=== PATIENT | female | born 1955 | race Caucasian/White ===

== ENCOUNTER → 2017-03-05 | Day surgery (SDC) | payer MEDICARE ==
[~2017-03-05] MED LIST: CYCL10TA2 PO; ESOM40CA PO; EZET1TAB35 PO; FLUO20CA16 PO; HYDR-971 PO; IV RINGERS,LACTATED 1000ML 1,000 ML IV SCH; LEVO88TA4 PO; LIDOCAINE 1% PF 2 ML VIAL. ID PRN; MIDAZOLAM HCL/PF 2 MG/2 ML VIAL. IV PRN; PANT40TA5 PO; PROPOFOL 20 ML IV ONE; fentaNYL PF VIAL 100 MCG/2 ML VIAL IV PRN
[2017-03-05 13:30] VITALS: BP 121/61
== END | disposition home or self-care (01) ==
LOC: SURG 11:53
PROVIDERS: ATTEND Internal Medicine Gastroenterology
DX: Z09 Encounter for follow-up examination after completed treatment for conditions other than malignant neoplasm (principal); Z86.010 Personal history of colon polyps; K64.0 First degree hemorrhoids; E78.00 Pure hypercholesterolemia, unspecified; K21.9 Gastro-esophageal reflux disease without esophagitis; M19.91 Primary osteoarthritis, unspecified site; F32.9 Major depressive disorder, single episode, unspecified; F17.200 Nicotine dependence, unspecified, uncomplicated; Z90.710 Acquired absence of both cervix and uterus; Z86.39 Personal history of other endocrine, nutritional and metabolic disease
CPT/HCPCS: 45378; J2704

== ENCOUNTER → 2021-07-12 | Outpatient (CLI) | payer OTHER ==
[2017-03-05 13:30] VITALS: BP 121/61
[~2021-07-12] MED LIST changes: +CYCL10TA19 PO; -CYCL10TA2 PO; +HYDR-3164 PO; -HYDR-971 PO; -IV RINGERS,LACTATED 1000ML 1,000 ML IV SCH; -LIDOCAINE 1% PF 2 ML VIAL. ID PRN; -MIDAZOLAM HCL/PF 2 MG/2 ML VIAL. IV PRN; -PANT40TA5 PO; +PANT40TA77 PO; -PROPOFOL 20 ML IV ONE; -fentaNYL PF VIAL 100 MCG/2 ML VIAL IV PRN
--- NOTE | 2021-07-12 13:59 | RAD ---
CT LOWER LEFT EXTREMITY WITHOUT CONTRAST Clinical Indication: Reason: left knee conformis / Spl. Instructions: Conformis protocol TECHNIQUE: CT LOWER LEFT EXTREMITY WITHOUT CONTRAST. Thin contiguous axial CT images of the bilatera l hip, knee, and ankle were performed according to the conformis protocol. PQRS compliance statement - One or more of the following individualized dose reduction techniques wer e utilized for this study: 1. Automated exposure control 2. Adjustment of the mA and/or kV according to patient size 3. Use of iterative reconstruction technique Comparison: None. Findings: Study was performed for preoperative planning. Hip: There are no fractures or dislocations. There are no aggressive osseous lesions. Joint spaces ar e maintained. Mild bladder wall thickening likely cystitis, otherwise visceral structures are unremar kable. Knee: There are no fractures or dislocations. There are no aggressive osseous lesions. Severe left kn ee joint osteoarthritis with fragmentation and deformity of the medial femoral condyle and medial tib ial plateau with associated joint bodies. Moderate left knee joint effusion. Ankle: There are no fractures or dislocations. There are no aggressive osseous lesions. Joint spaces are maintained. Soft tissues are unremarkable. Impression: Preoperative planning CT left knee using conformance protocol. Severe left knee joint osteoarthritis. Mild bladder wall thickening, nonspecific but can be seen with cystitis. Electronically signed by: Jv Acuna MD (07/12/2021 1:56 PM) LINDA
== END ==
LOC: CT 13:30
PROVIDERS: ATTEND Orthopaedic Surgery
DX: M17.12 Unilateral primary osteoarthritis, left knee (principal); N32.89 Other specified disorders of bladder; M25.462 Effusion, left knee; M21.962 Unspecified acquired deformity of left lower leg
CPT/HCPCS: 73700

== ENCOUNTER → 2021-08-21 | Outpatient (CLI) | payer MEDICARE ==
[2017-03-05 13:30] VITALS: BP 121/61
[~2021-08-21] MED LIST changes: +ATOR40TA59 PO; +CHOL200059 PO; +FERR325T14 PO; +INUL2TAB4 PO; +MELO15TA23 PO
[2021-08-21 13:03] LABS: BASO # 0.1 x10^3/uL (0.0-0.2); BASO % 1 % (0-3); EOS # 0.3 x10^3/uL (0.0-0.7); EOS % 4 % (0-3); HEMATOCRIT 43.9 % (36.0-47.0); HEMOGLOBIN 14.2 g/dL (12.0-15.5); LYMPH # 1.9 x10^3/uL (1.0-4.8); LYMPH % 26 % (24-48); MEAN CORPUSCULAR HEMOGLOBIN 31 pg (25-35); MEAN CORPUSCULAR HGB CONC 32 g/dL (31-37); MEAN CORPUSCULAR VOLUME 94 fL (79-100); MONO # 0.4 x10^3/uL (0.0-1.1); MONO % 6 % (0-9); NEUT # 4.7 x10^3/uL (1.8-7.7); NEUT % 64 % (31-73); PLATELET COUNT 345 x10^3/uL (140-400); RED BLOOD COUNT 4.66 x10^6/uL (3.50-5.40); RED CELL DISTRIBUTION WIDTH 13.2 % (11.5-14.5); WHITE BLOOD COUNT 7.4 x10^3/uL (4.0-11.0)
--- NOTE | 2021-08-21 13:14 | EKG ---
[facility] [address] [place] [address] Test Date: 2021-08-21 Test Time: 13:13:27 Pat Name: DEVIN BABCOCK Department: Room: Gender: F Collections Rep: QING : 1955 Requested By: LILLI ESTEBAN Order Number: [id number] Reading MD: Ike Butler Measurements Intervals [place] Rate: 74 P: 23 NC: 140 QRS: -6 QRSD: 82 T: 23 QT: 342 QTc: 380 Interpretive Statements SINUS RHYTHM LEFTWARD AXIS T ABNORMALITY IN HIGH LATERAL LEADS Electronically Signed On 08-22-2021 8:19:41 CLOTH FINISHING RANGE OPERATOR by Ike Butler
[2021-08-21 13:17] LABS: PROTHROMBIN TIME PATIENT 11.8 SEC (11.7-14.0)
[2021-08-21 13:19] LABS: ALBUMIN 3.9 g/dL (3.4-5.0); CALCIUM 9.5 mg/dL (8.5-10.1); CREATININE 1.1 mg/dL (0.6-1.0); GFR 50.2; POTASSIUM 4.8 mmol/L (3.5-5.1)
--- NOTE | 2021-08-21 13:49 | RAD ---
AP and Lateral Views of the Chest 08/21/2021 1:15 PM Indication: Preop knee replacement: Comparison: Chest radiograph February 20, 2016] Findings: Stable calcified granulomas in the left upper lobe. There is no focal consolidation or infi ltrate identified. Heart size is normal.. There is no evidence of pneumothorax or pleural effusion. N o acute osseous abnormalities are identified. Impression: No evidence of acute cardiopulmonary process. Electronically signed by: Kumar Chaudhry MD (08/21/2021 1:46 PM) [id number]
[2021-08-22 02:09] LABS: HEMOGLOBIN A1C 5.9 % (4.8-5.6)
== END ==
LOC: SURGPAT 12:18
PROVIDERS: ATTEND Orthopaedic Surgery
DX: Z01.818 Encounter for other preprocedural examination (principal); J84.10 Pulmonary fibrosis, unspecified; M17.12 Unilateral primary osteoarthritis, left knee
CPT/HCPCS: 36415; 71046; 80048; 82040; 82306; 83036; 85025; 85610; 85651; 85730; 87641; 93005

== ENCOUNTER 2021-09-09 09:04 | Observation (INO) | payer MEDICARE ==
[2021-08-21 12:46] VITALS: BP 167/87
[~2021-09-09] VITALS: Ht 157.5 cm; Wt 90.4 kg
[~2021-09-09 09:04] MED LIST changes: +ACETAMINOPHEN 500 MG TABLET PO PRN; +GABAPENTIN 300 MG CAPSULE. PO PRN; +HYDROmorphone 2 MG/ML INJ. IVP PRN; +IV RINGERS,LACTATED 1000ML 1,000 ML IV SCH; +MELOXICAM 7.5 MG TABLET PO PRN; +PROCHLORPERAZINE 10 MG/2 ML VIAL. IVP PRN; +TRANEXAMIC ACID 1,000 MG in IV NS 50ML -- 1ST BAG INJ ONE; +TRANEXAMIC ACID 1,000 MG in IV NS 50ML -- 2ND BAG INJ ONE; +TV=100ml MORPHINE 5 MG, KETOROLAC 30 MG, ROPIVacaine 0.5% PF 60 ML, EPINEPH... INT ART ONE; +fentaNYL PF VIAL 100 MCG/2 ML VIAL IVP PRN
[2021-09-09] MEDS: TV=62ml MORPHINE 5 MG, KETOROLAC 30 MG, ROPIV, EPI INT ART ONE ×2 (10:45→12:14)
[2021-09-09] MEDS ORDERED: ONDANSETRON PF 4 MG/2 ML VIAL. ONE (10:54)
[2021-09-09] MEDS ORDERED: SEVOFLURANE 61 TO 120 MINUTES. IH ONE (10:54)
[2021-09-09] MEDS ORDERED: DEXAMETHASONE SOD PHOS 4 MG/ML VIAL ONE (10:54)
[2021-09-09] MEDS ORDERED: PROPOFOL 10 MG/ML (20ML) VIAL. IV ONE ×2 (10:54→12:13)
[2021-09-09] MEDS ORDERED: LIDOCAINE 2% PF 5 ML VIAL. ONE (10:54)
[2021-09-09] MEDS ORDERED: KETOROLAC 30 MG/ML VIAL. ONE (10:54)
[2021-09-09] MEDS ORDERED: 0.9 % SODIUM CHLORIDE 10 ML DISP.SYRIN. IV PRN (11:45)
[2021-09-09] MEDS ORDERED: PROCHLORPERAZINE 5 MG TABLET. PO PRN (11:45)
[2021-09-09] MEDS ORDERED: METOCLOPRAMIDE HCL 10 MG/2 ML VIAL. IVP PRN (11:45)
[2021-09-09] MEDS ORDERED: MORPHINE SULFATE 2 MG/ML INJ. IVP PRN (11:45)
[2021-09-09] MEDS ORDERED: fentaNYL PF VIAL 100 MCG/2 ML VIAL IVP PRN (11:45)
[2021-09-09] MEDS ORDERED: IV DEXTROSE 5% 250 ML BAG. IV PRN (11:45)
[2021-09-09] MEDS: IV NORMAL SALINE 1000ML BAG 1,000 ML IV SCH (11:45)
[2021-09-09] MEDS ORDERED: ZOLPIDEM 5 MG TABLET. PO PRN (11:45)
[2021-09-09] MEDS ORDERED: diphenhydrAMINE 50 MG/ML VIAL IVP PRN (11:45)
[2021-09-09] MEDS ORDERED: DEXTROSE 50% 25 GM / 50ML DISP.SYRIN. IV PRN (11:45)
[2021-09-09] MEDS ORDERED: PHENYLEPHRINE in 0.9% NACL PF 1 MG/10 ML SYRINGE. IV ONE (11:53)
[2021-09-09] MEDS: ONDANSETRON ODT 4 MG TAB.RAPDIS. PO SCH ×2 (12:00→17:45)
[2021-09-09] MEDS: ONDANSETRON PF 4 MG/2 ML VIAL. IVP SCH ×2 (12:00→17:41)
[2021-09-09] MEDS ORDERED: TRANEXAMIC ACID in NS IVPB 100 ML ONE (12:08)
[2021-09-09] MEDS ORDERED: TRANEXAMIC ACID in NS IVPB 50 ML ONE (12:17)
[2021-09-09] MEDS ORDERED: fentaNYL PF VIAL 100 MCG/2 ML VIAL ONE ×3 (13:14→14:12)
--- NOTE | 2021-09-09 13:17 | PDOC4 ---
OPERATIVE NOTE Date: Date: Sep 09, 2021 Pre-Op Diagnosis: Severe degenerative joint disease left knee Post-Op Diagnosis: Same Procedure Performed: Left total knee arthroplasty Surgeon: Sultana Anesthesia Type: General Blood Loss: 75 cc Specimans Obtained: Bone left knee Findings: See dictation Complications: None LILLI ESTEBAN Jr., DO Sep 09, 2021 13:17
[2021-09-09] MEDS ORDERED: PROCHLORPERAZINE 10 MG/2 ML VIAL. ONE (13:22)
--- NOTE | 2021-09-09 13:32 | OP ---
DATE OF SURGERY: 09/09/2021 PREOPERATIVE DIAGNOSIS: Severe degenerative joint disease, left knee. POSTOPERATIVE DIAGNOSIS: Severe degenerative joint disease, left knee. PROCEDURE: Left total knee arthroplasty. SURGEON: Newton Weinberg Jr, DO STALLION MANAGER: Braxton Bray. ANESTHESIA: General. COMPLICATIONS: None. ESTIMATED BLOOD LOSS: 75 mL. COMPONENTS: ConforMIS left total knee arthroplasty with a medial 8 tibial insert, lateral C tibial insert and a 32 patella. DESCRIPTION OF PROCEDURE: The patient was taken to the operative suite, given a spinal anesthetic. Left lower extremity was then prepped and draped in a sterile fashion. Incision was made through skin and subcutaneous tissues down to the extensor mechanism. Superficial bleeding was coagulated using a Bovie knife. After that, the medial parapatellar incision was made. Patella was everted. There were severe changes noted in the patellofemoral compartment. Therefore, the size of this patella was measured. This was cut in the appropriate fashion and then a 38 was noted to be the most appropriate size for the patella; therefore, the guide was placed and the drill holes were made through the guide. This was protected as the knee was taken into a flexed position. There were noted to be severe changes to the medial compartment, moderate changes to the lateral compartment. In any manner, the medial and lateral meniscal remnants were removed as well as the ACL, PCL remained intact and the F1 guide was then placed on the femur and drilled. Chondral surface was removed. The appropriate sites and then the F2 guide was placed, held in appropriate position. The drill pins were placed on the distal femur and then they were also on the anterior femur to hold this into position. The distal pins were then removed. The remainder of the guide was noted to be intact and in good position. Following this, the distal cut was made. This was noted to be a good flush cut. This was all removed and the next guide was then placed through using the pin holes distally. This was flushed on the femur with proper rotation and orientation noted. Therefore, this was pinned in appropriate position. The anterior, posterior and one of the chamfer cuts were made as well as the plugs, those were drilled. This guide was then removed and the final guide was placed on the femur. The final chamfer cuts were then made. These were noted to be a good flush cuts. The trial fit perfectly. This was then removed and following this, the external tibial guide was placed on the tibia with medial, lateral and posterior retractors placed. Proximal tibia was then cut to the appropriate position and an extra 2 mm was taken due to the fact this was a minimal resection at this point. The trials were then placed, taken through range of motion. There was excellent tracking of the patellofemoral joint and excellent stability throughout the arc of motion. These trials were then marked on the tibial side. This was held with pins and the drill and the keel were placed at the appropriate depth for rotation. All trial components were then removed. The Werewolf was then used to coagulate posterior capsular structures as well as medial and lateral capsular structures. Cement was mixed on the back table. Cement was then placed on cut surfaces. The tibia was impacted first, followed by the femur and this was held in extension until hardening of cement. Same was done on the patella, which was held with a patellar clamp. Excess cement was removed and then after hardening of cement, excess cement was again removed and then taken through range of motion. There was excellent stability, equal flexion and extension gaps were noted at this point. Then, the trials were removed and the actual polyethylene inserts were placed and held in the tray and noted to be stable. This was taken through range of motion. Tranexamic acid was then placed within the knee itself. While the tourniquet was deflated, no excessive bleeding was noted. Superficial bleeding was coagulated with the Bovie knife as well as with the Werewolf. The medial parapatellar incision was then closed in a running fashion using the Stratafix, then taken through multiple ranges of motion, noted to be stable and secure. This was reinforced with 2 or 3 separate areas of Vicryl and then the superficial tissue and skin was reapproximated. Sterile dressing was applied. The patient was then taken from the operative bed to the postoperative bed, taken to the PACU in stable condition. HUMPHREY/WILLIE MAGAÑA: Tracy TID: [id number]
[2021-09-09] MEDS: fentaNYL PF VIAL 100 MCG/2 ML VIAL IVP PRN ×3 (14:08→14:32)
--- NOTE | 2021-09-09 15:10 | RAD ---
AP and lateral views of the left knee without comparison. Indication: Postop. Findings: Patient status post total left knee arthroplasty. No evidence of immediate hardware failure or compli cation. Surgical rachel are seen anteriorly. Impression: 1. Patient status post total left knee arthroplasty without evidence of immediate complication. Electronically signed by: Paddy Johnson MD (09/09/2021 3:07 PM) [facility]
[2021-09-09] MEDS: MORPHINE SULFATE 2 MG/ML INJ. IVP PRN ×2 (15:24→15:34)
[2021-09-09] MEDS ORDERED: MORPHINE SULFATE 2 MG/ML INJ. ONE (15:30)
[2021-09-09 16:20] VITALS: BP 123/86
[2021-09-09 16:50] VITALS: BP 121/78
[2021-09-09] MEDS: FERROUS SULFATE 325 MG TABLET. PO SCH (17:00)
[2021-09-09 17:20] VITALS: BP 120/82
[2021-09-09] MEDS ORDERED: KETOROLAC 30MG VIAL 30 MG, BUPIVACAINE MPF 0.25% 20 ML, EPINEPHrine 0.5 MG in TOTAL VOL... INT ART SCH (18:00)
[2021-09-09 19:00] VITALS: BP 123/74
[2021-09-09] MEDS ORDERED: ASPI325T11 PO (19:37)
[2021-09-09] MEDS ORDERED: CYCLOBENZAPRINE 10 MG TABLET. PO PRN (19:45)
[2021-09-09] MEDS: ATORVASTATIN CALCIUM 40 MG TABLET. PO SCH (20:54)
[2021-09-09] MEDS: oxyCODONE IR 5 MG TABLET PO PRN (20:54)
[2021-09-09 23:00] VITALS: BP 124/73
[2021-09-10] VITALS (7 sets, daily range): BP systolic 116–142; BP diastolic 58–80
[2021-09-10] MEDS: ONDANSETRON PF 4 MG/2 ML VIAL. IVP SCH ×2 (05:52)
[2021-09-10] MEDS: LEVOTHYROXINE 75 MCG TABLET PO SCH (05:53)
[2021-09-10] MEDS: GABAPENTIN 100 MG CAPSULE. PO SCH ×3 (05:53→22:04)
[2021-09-10] MEDS: PANTOPRAZOLE 40 MG TABLET.DR. PO SCH (05:53)
[2021-09-10] MEDS ORDERED: MAGNESIUM HYDROXIDE 2,400 MG/30 ML ORAL.SUSP. PO PRN (06:00)
[2021-09-10] MEDS: ONDANSETRON ODT 4 MG TAB.RAPDIS. PO SCH ×2 (06:03)
[2021-09-10] MEDS: ACETAMINOPHEN 500 MG TABLET PO SCH ×3 (08:42→22:14)
[2021-09-10] MEDS: SENNOSIDES/DOCUSATE 8.6/50MG TABLET. PO SCH (08:42)
[2021-09-10] MEDS: FLUoxetine HCL 20 MG CAPSULE PO SCH (08:42)
[2021-09-10] MEDS: ASPIRIN 325 MG TABLET PO SCH (08:43)
[2021-09-10] MEDS: MULTIVITAMIN with MINERAL TABLET. PO SCH (08:43)
[2021-09-10] MEDS: CALCIUM CARBONATE 500 MG TAB.CHEW PO PRN ×2 (08:43→08:47)
[2021-09-10] MEDS: MELOXICAM 7.5 MG TABLET PO SCH (08:43)
[2021-09-10] MEDS: FERROUS SULFATE 325 MG TABLET. PO SCH ×2 (08:43→17:47)
[2021-09-10] MEDS: oxyCODONE IR 5 MG TABLET PO PRN ×4 (08:47→22:14)
[2021-09-10] MEDS ORDERED: MELOXICAM 15 MG PO SCH (09:00)
[2021-09-10] MEDS: IV NORMAL SALINE 1000ML BAG 1,000 ML IV SCH (11:45)
[2021-09-10] MEDS ORDERED: ONDANSETRON PF 4 MG/2 ML VIAL. IVP PRN (12:00)
[2021-09-10] MEDS ORDERED: ONDANSETRON ODT 4 MG TAB.RAPDIS. PO PRN (12:00)
--- NOTE | 2021-09-10 14:39 | PN ---
DATE: 09/10/2021 She is postoperative day #1 for a total knee arthroplasty. She is actually doing very well today. The pain is under control. She already has much less pain today than she did prior to surgery. She describes it as being around a 3. She was up with physical therapy this morning. She continues with DVT prophylaxis. She has no signs or symptoms of infection or DVT at this point with a negative Homans test. She has her dressings intact at this point. No issues or problems or concerns whatsoever. She has completed her antibiotics. We will continue with physical and occupational therapy. We will see her back for reevaluation later today or tomorrow depending on how she is doing, but most likely tomorrow. STEFFI DR: Tracy TID: [id number]
[2021-09-10] MEDS ORDERED: BISACODYL 10 MG SUPP.RECT. PR PRN (16:00)
[2021-09-10] MEDS: ATORVASTATIN CALCIUM 40 MG TABLET. PO SCH (22:04)
[2021-09-11 02:53] VITALS: BP 104/53
[2021-09-11] MEDS: ACETAMINOPHEN 500 MG TABLET PO SCH ×3 (06:35→14:12)
[2021-09-11] MEDS: PANTOPRAZOLE 40 MG TABLET.DR. PO SCH (06:35)
[2021-09-11] MEDS: GABAPENTIN 100 MG CAPSULE. PO SCH ×2 (06:35→14:12)
[2021-09-11] MEDS: LEVOTHYROXINE 75 MCG TABLET PO SCH (06:35)
[2021-09-11 07:00] VITALS: BP 127/73
[2021-09-11 08:15] LABS: HEMATOCRIT 36.1 % (36.0-47.0); HEMOGLOBIN 11.8 g/dL (12.0-15.5)
[2021-09-11] MEDS: ASPIRIN 325 MG TABLET PO SCH (08:49)
[2021-09-11] MEDS: SENNOSIDES/DOCUSATE 8.6/50MG TABLET. PO SCH (08:49)
[2021-09-11] MEDS: FLUoxetine HCL 20 MG CAPSULE PO SCH (08:49)
[2021-09-11] MEDS: FERROUS SULFATE 325 MG TABLET. PO SCH (08:49)
[2021-09-11] MEDS: MULTIVITAMIN with MINERAL TABLET. PO SCH (08:49)
[2021-09-11] MEDS: MELOXICAM 7.5 MG TABLET PO SCH (08:49)
--- NOTE | 2021-09-11 09:52 | NUR ---
0900 Acetaminophen non administered pt had a dose @ 0635.
[2021-09-11] MEDS ORDERED: HYDR-2761 PO (11:36)
[2021-09-11] MEDS ORDERED: GABA-585 PO (11:36)
--- NOTE | 2021-09-11 11:39 | SNU/HH DC ---
DISCHARGE WITH HOME HEALTH DISCHARGE INFORMATION: Condition on Discharge: Stable CODE STATUS: Code Status: Full HOME HEALTH: Face to Face: I certify this patient is under my care and that I, or a nurse practitioner or physician's publisher assistant working with me, had a face to face encounter that meets the physician face to face encounter requirements with this patient on []. Medical Complications: S/P Joint Replacement, Other Senior Care For: Assess & Educate Safety RN For Eval/Treatment: Yes Physical Therapy For: Evalulation/Treatment Occupational Therapy For: Evaluation/Treatment Home Health Aide For: Self-care APPLIANCE FIXER For: Community Resources Pt Meets Homebound Status: Poor coordination w/ amb. POST DISCHARGE ORDERS: DIET AFTER DISCHARGE: Cardiac CERTIFICATION STATEMENT: Certification Statement: Certification Statement: Based on the above finding, I certify that this patient is confined to the home and needs intermittent mcc care, physical therapy and/or speech therapy, or continues to need occupational therapy.~ This patient is under my care, and I have initiated the establishment of the plan of care.~ This patient will be followed by myself or a community physician who will periodically review the plan of care. Home Meds Active Scripts Hydrocodone Bit/Acetaminophen (HYDROCODONE-APAP 5-325 ) 1 Tab Tablet, 1 TAB PO PRN Q6HRS PRN for PAIN for 10 Days, #20 TAB 0 Refills Prov:CASTLE,NIAL K III DO 09/11/21 Gabapentin (GABAPENTIN ) 100 Mg Capsule, 100 MG PO Q8HRS for . for 30 Days, #90 CAP Prov:CASTLE,NIAL K III DO 09/11/21 Hydrocodone/Apap 5-325 (NORCO 5-325 TABLET) 1 Each Tablet, 1 TAB PO PRN Q6HRS PRN for PAIN, #20 TAB 0 Refills Prov:RICHA OVALLE MD 02/20/16 Reported Medications Aspirin (ASPIRIN EC) 325 Mg Tablet., 1 TAB PO BID for blood thinner for 30 Days, #60 TAB 0 Refills 09/09/21 Ferrous Sulfate (FERROUS SULFATE) 325 Mg Tablet, 325 MG PO DAILY for SUPPLEMENT, TAB 08/16/21 Atorvastatin Calcium (ATORVASTATIN CALCIUM) 40 Mg Tablet, 40 MG PO HS for FOR CHOLESTEROL, #30 TAB 0 Refills 08/16/21 Cholecalciferol (Vitamin D3) (Vitamin D3) 50 Mcg Tablet, 50 MCG PO DAILY for SUPPLEMENT, TAB 08/16/21 Inulin (Fiber Gummies) 2 Gm Tab.chew, 1 TAB PO DAILY for SUPPLEMENT, TAB.CHEW 08/16/21 Meloxicam (MELOXICAM) 15 Mg Tablet, 15 MG PO DAILY for PAIN CONTROL, TAB 08/16/21 Pantoprazole Sodium (PANTOPRAZOLE SODIUM ) 40 Mg Tablet.dr, 40 MG PO DAILY, TAB 03/05/17 Cyclobenzaprine Hcl (CYCLOBENZAPRINE HCL) 10 Mg Tablet, 10 MG PO Q6HRS PRN for MUSCLE PAIN 10/05/13 Fluoxetine Hcl (PROZAC) 20 Mg Capsule, 40 MG PO DAILY for DEPRESSION CONTROL 10/05/13 Levothyroxine Sodium (LEVOTHYROXINE SODIUM) 88 Mcg Tablet, 75 MCG PO DAILY for HYPTHYROID 10/05/13 IRINA FUNEZ III DO Sep 11, 2021 11:39
[2021-09-11] MEDS: IV NORMAL SALINE 1000ML BAG 1,000 ML IV SCH (11:45)
--- NOTE | 2021-09-11 11:57 | SSS ---
DATE OF SERVICE: 09/11/2021 ADMIT DATE: 09/09/2021 CHIEF COMPLAINT: Left knee replacement. HISTORY OF PRESENT ILLNESS: The patient is a pleasant, middle-aged female who underwent a left knee replacement yesterday. We were requested for postop medical evaluation and treatment of comorbidities and to assist with discharge planning. PAST MEDICAL HISTORY: Recent left knee replacement, osteoarthritis, neuropathy, iron deficiency anemia, insomnia, constipation, GERD. ALLERGIES: None. FAMILY HISTORY: Diabetes. SOCIAL HISTORY: She does not drink, smoke or take drugs. She is currently on disability. MEDICATIONS: Reviewed. Please refer to the MRAD. REVIEW OF SYSTEMS: GENERAL: No history of weight change, weakness or fevers. SKIN: No bruising, hair changes or rashes. EYES: No blurred, double or loss of vision. NOSE AND THROAT: No history of nosebleeds, hoarseness or sore throat. HEART: No history of palpitations, chest pain or shortness of breath on exertion. LUNGS: Denies cough, hemoptysis, wheezing or shortness of breath. GASTROINTESTINAL: Denies changes in appetite, nausea, vomiting, diarrhea or constipation. GENITOURINARY: No history of frequency, urgency, hesitancy or nocturia. NEUROLOGIC: Denies history of numbness, tingling, tremor or weakness. PSYCHIATRIC: No history of panic, anxiety or depression. ENDOCRINE: No history of heat or cold intolerance, polyuria or polydipsia. EXTREMITIES: She complains of left knee pain, although it is improving. PHYSICAL EXAMINATION: VITALS: Within normal limits and are stable. GENERAL: No apparent distress. Alert and oriented. HEENT: Normal cephalic atraumatic, external auditory canals are patent EYES: Extraocular muscles are intact, pupils are equally round and reactive to light and accommodation MUSCULOSKELETAL: Well developed, well nourished, good range of motion ENDOCRINE: No thyromegaly was palpated LYMPHATICS: No cervical chain or axillary nodes were noted HEMATOPOIETIC: No bruising NECK: Supple, no JVD, no thyromegaly was noted. LUNGS: Clear to auscultation in all lung ortega without rhonchi or wheezing. HEART: RRR, S1, S2 present. Peripheral pulses intact, no obvious murmurs were noted. ABDOMEN: Soft, nontender. Positive bowel sounds no organomegaly, normal bowel sounds. EXTREMITIES: The left knee has clean, dry, intact dressing and a JULIETA drain. NEUROLOGIC: Normal speech, normal tone. A and O x 3, moves all extremities, no obvious focal deficits. PSYCHIATRIC: Normal affect, normal mood. Stable. SKIN: No ulcerations or rashes, good skin turgor, no jaundice. VASCULAR: Good capillary refill, neurovascular bundle appears to be intact. ASSESSMENT AND PLAN: Postop left knee replacement. Clinically, she looks great for discharge. I sent prescriptions to her pharmacy for pain meds. Continue home meds, wound care. I set up home health. I spoke with the home health nurse. ALICE/SALVADOR DR: Rama TID: [id number]
--- NOTE | 2021-09-11 17:04 | NUR ---
PT DISCHARGED HOME WITH SELF CARE. DISCHARGE INSTRUCTIONS AND PRESCRIPTIONS DISCUSSED. PT VERBALIZED UNDERSTANDING. PT PACKED BELONGINGS ON HER OWN. PT ASSISTED TO WHEELCHAIR AND WAS SECURED IN CAR WITH BOYFRIEND.
--- NOTE | 2021-09-11 18:28 | PATHOLOGY ---
[facility] Accession Number: [id number] . 01 Material submitted: . knee - LEFT KNEE BONE/TISSUE. Modifiers: left . 01 Clinical history: . LEFT TOTAL KNEE . 02 Diagnosis: Segments of bone and soft tissue, left total knee arthroplasty: - Advanced degenerative arthritis. (JPM:kevyn; 09/11/2021) QMS 09/11/2021 0815 Local . 02 Electronically signed: . Som Estes MD, Pathologist NPI- [id number] . 01 Gross description: . The specimen is received in formalin, labeled "Nga Hernández, left knee bone/tissue". Received are multiple segments of bone, including the tibial plateau, measuring 8.5 x 6.0 x 1.0 cm admixed with soft tissue in aggregate dimensions. Meniscus is present. The articular surfaces are light walker to dark walker, smooth to roughened, and with signs of eburnation. The specimen is submitted representatively in cassettes A1 to A2, following decalcification.([facility]; 09/09/2021) [facility] 09/09/2021 1801 Local . 02 Pathologist provided ICD-10: M17.12 . 02 CPT . 090788, [id number] Specimen Comment: A courtesy copy of this report has been sent to [phone], [phone] Specimen Comment: [id number] Specimen Comment: Report sent to / DR MACIEL Specimen Comment: A duplicate report has been generated due to demographic updates. Performed at: 01 [facility] [id number] [facility] [address], [place], [place] [id number] MD Emiliano Fuchs MD Phone: [phone] Performed at: 02 [facility] [address], [place] [id number] MD Som Estes MD Phone: [phone]
--- NOTE | 2021-09-11 18:52 | PN ---
DATE: 09/11/2021 LOCATION: 418. She is postoperative day #2 for a left total knee replacement. She is doing very well. She is progressing very well with physical therapy. Pain is much better under control at this point. She has no signs or symptoms of DVT. She has no excessive drainage at this point from the wound. Dressings look very good at this point. Her range of motion currently is 0 to about 70 degrees of flexion right now. She is doing well enough. I think she can do a couple more therapy sessions 1 tonight and 1 tomorrow and I think she will be just fine to be discharged home. She was having a little bit of difficulty with transfers at first, but I think she has got that taken care of. I will therefore see her back for reevaluation, hopefully, tomorrow before she goes home. She understands I am at a different facility; however, I will try my best to get here before she leaves, which we have already talked about discharge instructions at length about when to follow up, ice, elevation and a daily aspirin. LUIZ DR: Tracy TID: [id number]
== END 2021-09-11 17:05 | disposition home health service (06) ==
LOC: SURG 09:04 → 4 NORTH 11:44 → INTOOBSV 11:44
PROVIDERS: ADMIT Orthopaedic Surgery; ATTEND Orthopaedic Surgery
DX: M17.12 Unilateral primary osteoarthritis, left knee (principal); Z20.822 Contact with and (suspected) exposure to COVID-19; D50.9 Iron deficiency anemia, unspecified; G47.00 Insomnia, unspecified; K21.9 Gastro-esophageal reflux disease without esophagitis; K59.00 Constipation, unspecified; Z79.899 Other long term (current) drug therapy; Z98.890 Other specified postprocedural states; Z79.4 Long term (current) use of insulin; Z79.82 Long term (current) use of aspirin
CPT/HCPCS: 27447; 36415; 73560; 85014; 85018; 86850; 86900; 86901; 88305; 88311; 96365; 96366; 96375; 97116; 97150; 97162; 97165; 97530; 97535; A4213; A4930; A6253; A6258; A6450; A6550; C1713; C1776; G0378; G0379; J0171; J0690; J0780; J1100; J1885; J2270; J2370; J2405; J2704; J2795; J3010; A4223